=== PATIENT | female | born 1960 | race American Indian/Alaskan Native ===

== ENCOUNTER 2017-11-23 16:39 | Emergency (ER) | payer MEDICARE ==
[2017-11-23 18:12] LABS: Basophils % (Auto) 0.3 % (0.0-1.8); Eosinophils % (Auto) 0.1 % (0.0-4.3); Hematocrit 42.7 % (30.3-42.9); Hemoglobin 13.8 gm/dl (10.1-14.3); Lymphocytes % (Auto) 7.5 % (13.4-35.0); Mean Corpuscular HGB Conc 32 % (30-34); Mean Corpuscular Hemoglobin 30 pg (28-32); Mean Corpuscular Volume 92 fl (79-97); Monocytes # (Auto) 0.7 K/mm3 (0.0-0.8); Monocytes % (Auto) 5.3 % (0.0-7.3); Platelet Count 209 K/mm3 (140-440); Red Blood Count 4.65 M/mm3 (3.65-5.03); Red Cell Distribution Width 14.7 % (13.2-15.2)
[2017-11-23 18:27] LABS: Alanine Aminotransferase 18 units/L (7-56); Albumin 4.3 g/dL (3.9-5); BUN/Creatinine Ratio 19; Blood Urea Nitrogen 13 mg/dL (7-17); Hemolysis Index 1; Lipase 222 units/L (13-60)
[2017-11-23 22:27] LABS: Bilirubin,Urine NEG (Negative); Blood,Urine SM (Negative); Color,Urine Yellow (Yellow); Mucus,Urine FEW /HPF; Protein,Urine <15 mg/dL mg/dL (Negative); Urobilinogen,Urine < 2.0 mg/dL (<2.0)
[2017-11-23] MEDS ORDERED: MORPHINE IV ONE (23:09)
[2017-11-23] MEDS ORDERED: NACL 0.9% 1000 ML 1,000 ML IV ONE (23:09)
[2017-11-23] MEDS ORDERED: PEPCID IV ONE (23:10)
[2017-11-23] MEDS ORDERED: ZOFRAN IV ONE (23:10)
[2017-11-24] MEDS ORDERED: NACL ONE (00:49)
--- NOTE | 2017-11-24 00:59 | Emergency Department Report ---
ED Abdominal Pain HPI - General Chief Complaint: Abdominal Pain Stated Complaint: HEADACE/VOMITING Time Seen by Provider: 11/23/17 22:50 Source: patient Mode of arrival: Ambulatory Limitations: No Limitations - History of Present Illness Initial Comments: 57-year-old female the past medical history of lupus, diverticulitis, benign brain tumor resection, seizures, stomach bypass surgery, intestinal resection surgery presents to the hospital complaints of abdominal pain and headache. Last night patient had mild symptoms but they worsened today. This afternoon patient developed stabbing pain around the umbilicus, frontal headache throbbing headache, nausea, vomiting, and diarrhea. Occasional pink vomitus reported. She denies melena, hematochezia, or fever. She is not currently on steroids but completed a course for acute lupus flare 2 weeks ago. Pain currently moderate in intensity. Abdominal pain worse on palpation Severity scale (0 -10): 7 - Related Data Previous Rx's Medication Instructions Recorded Last Taken Type Dicyclomine [Bentyl] 20 mg PO QID #20 tablet 11/24/17 Unknown Rx Omeprazole Magnesium [PriLOSEC Otc] 20 mg PO QDAY #20 tablet. 11/24/17 Unknown Rx Ondansetron [Zofran Odt] 4 mg PO Q8HR PRN #20 tab.rapdis 11/24/17 Unknown Rx Sucralfate [Carafate] 1 gm PO Q6HR #28 udc 11/24/17 Unknown Rx Allergies Allergy/AdvReac Type Severity Reaction Status Date / Time ampicillin AdvReac Anaphylaxis Verified 06/19/17 17:46 ED Review of Systems ROS: Stated complaint: HEADACE/VOMITING Other details as noted in HPI Comment: All other systems reviewed and negative ED Past Medical Hx - Past Medical History Additional medical history: Lupus,diverticulitis - Surgical History Additional Surgical History: Brain tumor removed, Stomach bypass, Neck surgery, 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 11/24/17 Unknown Rx Ondansetron [Zofran Odt] 4 mg PO Q8HR PRN #20 tab.rapdis 11/24/17 Unknown Rx Sucralfate [Carafate] 1 gm PO Q6HR #28 udc 11/24/17 Unknown Rx ED Physical Exam - General Limitations: No Limitations - Other Other exam information: General: No limitations, patient is alert in no acute distress Head exam: Atraumatic, normocephalic Eyes exam: Normal appearance, nonicteric sclera ENT: Moist mucous membrane, normal oropharynx Neck exam: Normal inspection, full range of motion, no meningismus nontender Respiratory exam: Clear to auscultation bilateral, no wheezes, rales, crackles Cardiovascular: Normal rate and rhythm, normal heart sounds Abdomen: Soft, nondistended, tenderness greatest at the epigastric area, with normal bowel sounds, no rebound, or guarding Extremity: Full range of motion normal inspection no deformity Back: Normal Inspection, full range of motion, no tenderness Neurologic: Alert, oriented x3, cranial nerves intact, no motor or sensory deficit Psychiatric: normal affect, normal mood Skin: Warm, dry, intact ED Course Vital Signs 11/23/17 11/23/17 11/23/17 17:54 22:37 23:01 Temperature 98 F 97.8 F Pulse Rate 67 59 L Respiratory 18 18 Rate Blood Pressure 159/98 152/86 Blood Pressure 141/78 [Right] O2 Sat by Pulse 100 100 100 Oximetry 11/23/17 11/24/17 11/24/17 23:35 00:00 01:15 Temperature Pulse Rate Respiratory Rate Blood Pressure 142/84 130/72 122/70 Blood Pressure [Right] O2 Sat by Pulse 100 99 100 Oximetry - Reevaluation(s) Reevaluation #1: 11/24/17 01:46 pain improved after Morphine, zofran. Pt receiving NS 1 liter ED Medical Decision Making - Lab Data Result diagrams: 11/23/17 18:00 11/23/17 18:00 Lab Results 11/23/17 11/23/17 11/23/17 Range/Units 18:00 18:00 22:01 WBC 13.2 H (4.5-11.0) K/mm3 RBC 4.65 (3.65-5.03) M/mm3 Hgb 13.8 (10.1-14.3) gm/dl Hct 42.7 (30.3-42.9) % MCV 92 (79-97) fl MCH 30 (28-32) pg MCHC 32 (30-34) % RDW 14.7 (13.2-15.2) % Plt Count 209 (140-440) K/mm3 Lymph % (Auto) 7.5 L (13.4-35.0) % Wilson % (Auto) 5.3 (0.0-7.3) % Eos % (Auto) 0.1 (0.0-4.3) % Baso % (Auto) 0.3 (0.0-1.8) % Lymph # 1.0 L (1.2-5.4) K/mm3 Wilson # 0.7 (0.0-0.8) K/mm3 Eos # 0.0 (0.0-0.4) K/mm3 Baso # 0.0 (0.0-0.1) K/mm3 Seg Neutrophils % 86.8 H (40.0-70.0) % Seg Neutrophils # 11.4 H (1.8-7.7) K/mm3 Sodium 139 (137-145) mmol/L Potassium 4.8 (3.6-5.0) mmol/L Chloride 98.2 (98-107) mmol/L Carbon Dioxide 30 (22-30) mmol/L Anion Gap 16 mmol/L BUN 13 (7-17) mg/dL Creatinine 0.7 (0.7-1.2) mg/dL Estimated GFR > 60 ml/min BUN/Creatinine Ratio 19 % Glucose 103 H (65-100) mg/dL Calcium 9.0 (8.4-10.2) mg/dL Total Bilirubin 0.30 (0.1-1.2) mg/dL AST 44 H (5-40) units/L ALT 18 (7-56) units/L Alkaline Phosphatase 70 (35-129) units/L Total Protein 7.9 (6.3-8.2) g/dL Albumin 4.3 (3.9-5) g/dL Albumin/Globulin Ratio 1.2 % Lipase 222 H (13-60) units/L Urine Color Yellow (Yellow) Urine Turbidity Clear (Clear) Urine pH 5.0 (5.0-7.0) Ur Specific [place] 1.013 (1.003-1.030) Urine Protein <15 mg/dl (Negative) mg/dL Urine Glucose (UA) Neg (Negative) mg/dL Urine Ketones Tr (Negative) mg/dL Urine Blood Sm (Negative) Urine Nitrite Neg (Negative) Urine Bilirubin Neg (Negative) Urine Urobilinogen < 2.0 (<2.0) mg/dL Ur Leukocyte Esterase Tr (Negative) Urine WBC (Auto) 1.0 (0.0-6.0) /HPF Urine RBC (Auto) 4.0 (0.0-6.0) /HPF U Epithel Cells (Auto) 1.0 (0-13.0) /HPF Urine Mucus Few /HPF - Radiology Data Radiology results: report reviewed read by radiologist ct abd/pelvis IV contrast: IMPRESSION: No focal inflammatory changes of the abdomen and pelvis. Prior gastric bypass. Large and small bowel loops normal in caliber. The appendix is normal in caliber. No obstructive uropathy. ct head: IMPRESSION: No grossly acute intracranial abnormality. Remote surgical changes of right parietal craniotomy and suboccipital craniectomy. - Medical Decision Making Nausea vomiting and diarrhea likely secondary to acute gastroenteritis. CAT scan at that show any acute abnormality. Patient also had associated headache like he secondary to the same. CT head does not show any acute findings. Patient is nontoxic. Symptoms are better with ED treatment with symptoms control. She'll be discharged home with symptomatic treatment and PMD follow-up - Differential Diagnosis diverticulitis, pancreatitis, gastritis, brain tumor, UTI Critical Care Time: No Critical care attestation.: If time is entered above; I have spent that time in minutes in the direct care of this critically ill patient, excluding procedure time. ED Disposition Clinical Impression: Gastroenteritis, Headache, Lupus Disposition: DC-01 TO HOME OR SELFCARE Is pt being admited?: No Does the pt Need Aspirin: No Condition: Stable Instructions: Gastroenteritis (ED), Acute Headache (ED) Additional Instructions: Taken medication as prescribed and follow up with your doctor. Return if symptoms worsen. Prescriptions: Dicyclomine [Bentyl] 20 mg PO QID #20 tablet Omeprazole Magnesium [PriLOSEC Otc] 20 mg PO QDAY #20 tablet. Ondansetron [Zofran Odt] 4 mg PO Q8HR PRN #20 tab.rapdis PRN Reason: Nausea And Vomiting Sucralfate [Carafate] 1 gm PO Q6HR #28 udc Referrals: your, doctor [Other] - 3-5 Days Time of Disposition: 01:48 (d/c after ivf done)
[2017-11-24 01:32] VITALS: BP 122/70
--- NOTE | 2017-11-24 01:32 | Cat Scan Report ---
FINAL REPORT EXAM: CT HEAD/BRAIN WO CON HISTORY: ferrara, hx of benign tumor resection COMPARISON: None available. TECHNIQUE: Axial images obtained skull base through vertex. FINDINGS: No acute intracranial hemorrhage, midline shift or pathologic extra axial fluid collection. Ventricles and cisterns are normal in size and configuration for the patient's age. Arzola-white differentiation preserved. Prior right parietal craniotomy. There is a lucent lesion with ground-glass matrix involving the right parietal calvarium measuring 1.4 x 0.5 centimeters in axial dimension. 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 No suspicious calvarial lesion. Prior suboccipital craniectomy. Small retention cyst or polyp right maxillary sinus. Mastoid air cells are clear. Ocular globes are grossly unremarkable. IMPRESSION: No grossly acute intracranial abnormality. Remote surgical changes of right parietal craniotomy and suboccipital craniectomy.
--- NOTE | 2017-11-24 01:39 | Cat Scan Report ---
FINAL REPORT EXAM: CT ABDOMEN PELVIS W CON HISTORY: abd pain n,v,d COMPARISON: None available. TECHNIQUE: Contiguous axial images were obtained. Additional sagittal and coronal reformatted images were obtained. Administration of IV contrast given per institution protocol. Images submitted for interpretation. FINDINGS: Mild linear atelectasis at the left lung base. No calcified gallstones or biliary dilatation. Mild fatty infiltration of the liver. Portal vein is mildly prominent diameter but is patent measuring 10 millimeters in diameter. Spleen and pancreas unremarkable. No adrenal mass. No solid renal lesion or hydronephrosis. Aorta and IVC normal in caliber. Urinary bladder and uterus are grossly unremarkable. Ovaries are not well visualized. Multiple pelvic phleboliths. These appear to be separate from the distal ureters. No dilatation of the ureters to suggest presence of ureteral calculus. No free fluid or lymphadenopathy in the pelvic cavity. Prior gastric bypass. Bowel loops normal in caliber. No focal inflammatory changes the bowel. The appendix is best seen on the coronal images and is normal in caliber measuring 5 millimeters in greatest diameter. Moderate degenerative changes of the lumbar spine. Grade 1 anterolisthesis of L4 on L5 due to facet changes. Bony pelvis is grossly intact. IMPRESSION: No focal inflammatory changes of the abdomen and pelvis. Prior gastric bypass. Large and small bowel loops normal in caliber. The appendix is normal in caliber. No obstructive uropathy.
== END 2017-11-24 03:01 | disposition home or self-care (01) ==
LOC: ED 16:39
DX: K52.9 Noninfective gastroenteritis and colitis, unspecified (principal); L93.0 Discoid lupus erythematosus; R51 Headache; Z88.1 Allergy status to other antibiotic agents
CPT/HCPCS: 36415; 70450; 74177; 80053; 81001; 83690; 85025; 96361; 96374; 96375; 99284; J2270; J2405; J7030; Q9967

== ENCOUNTER 2018-09-06 02:33 | Emergency (ER) | payer MEDICARE, OTHER ==
--- NOTE | 2018-09-06 04:30 | Emergency Department Report ---
ED Laceration HPI - HPI Chief Complaint: Wound/Laceration Stated Complaint: FINGER CUT Time Seen by Provider: 09/06/18 03:34 Occurred When: Today Location: Upper Extremity (left middle finger) Tetanus Status: Up to Date Laceration Symptoms: Yes Pain ED Review of Systems ROS: Stated complaint: FINGER CUT Other details as noted in HPI Comment: All other systems reviewed and negative Skin: other ED Past Medical Hx - Past Medical History Previous Medical History?: Yes Additional medical history: Lupus,diverticulitis - Surgical History Past Surgical History?: Yes Additional Surgical History: Brain tumor removed, Stomach bypass, Neck surgery, intestinal resection status post gastric bypass complication - Social History Smoking Status: Former Smoker Substance Use Type: None - Medications Home Medications: Home Medications Medication Instructions Recorded Confirmed Last Taken Type Dicyclomine [Bentyl] 20 mg PO QID #20 tablet 11/24/17 Unknown Rx Omeprazole Magnesium [PriLOSEC Otc] 20 mg PO QDAY #20 tablet. 11/24/17 Unknown Rx Ondansetron [Zofran Odt] 4 mg PO Q8HR PRN #20 tab.rapdis 11/24/17 Unknown Rx Sucralfate [Carafate] 1 gm PO Q6HR #28 udc 11/24/17 Unknown Rx Laceration Physical Exam - Exam General: Vital signs noted. No distress. Alert and acting appropriately. Wound Length (cm): 1 Laceration Location: Upper Extremity (left middle finger) Laceration Exam: Yes Normal Distal CMS, No Foreign Body, No Exposed Tendon, Vessel, or Nerve, No Tendon Injury ED Course Vital Signs 09/06/18 02:38 Temperature 97.4 F L Pulse Rate 69 Respiratory 18 Rate Blood Pressure 140/80 O2 Sat by Pulse 96 Oximetry - Laceration /Wound Repair Left Finger Wound Length (cm): 1 Wound's Depth, Shape: superficial Wound Explored: clean Betadine Prep?: Yes Wound Repaired With: Dermabond Sterile Dressing Applied?: Yes Progress: well ED Medical Decision Making - Medical Decision Making Patient has been evaluated by this provider fast track. Patient has a superficial filet laceration was able to repair with Dermabond and Steri-Strips. Critical care attestation.: If time is entered above; I have spent that time in minutes in the direct care of this critically ill patient, excluding procedure time. ED Disposition Clinical Impression: Laceration of finger of left hand Qualifiers: Encounter type: initial encounter Finger: middle finger Damage to nail status: without damage Foreign body presence: without foreign body Qualified Code(s): S61.213A - Laceration without foreign body of left middle finger without damage to nail, initial encounter Disposition: DC-01 TO HOME OR SELFCARE Is pt being admited?: No Does the pt Need Aspirin: No Condition: Stable Instructions: Skin Adhesive Care (ED), Laceration (ED) Additional Instructions: Keep wound clean and dry. Change bandage daily. Referrals: PRIMARY CARE, [Primary Care Provider] - 3-5 Days Forms: Work/School Release Form(ED)
== END 2018-09-06 04:20 | disposition home or self-care (01) ==
LOC: ED 02:33
CPT/HCPCS: 99281

== ENCOUNTER 2019-09-05 03:20 | Emergency (ER) | payer SELFPAY ==
[2019-09-05] MEDS ORDERED: ASPIRIN 325 MG TAB PO ONE (03:42)
--- NOTE | 2019-09-05 04:07 | XRay Report ---
CHEST 1 VIEW 3:59 AM INDICATION / CLINICAL INFORMATION: Left chest pain and left body swelling for one week.. COMPARISON: None available. FINDINGS: SUPPORT DEVICES: None. HEART / MEDIASTINUM: The heart size and pulmonary vasculature are normal. LUNGS / PLEURA: No significant pulmonary or pleural abnormality. No pneumothorax. ADDITIONAL FINDINGS: There are surgical clips overlying both lower hemithoraces. IMPRESSION: No acute findings. Signer Name: Bryant Romero MD Signed: 09/05/2019 4:03 AM Workstation Name: [id number]
[2019-09-05 04:27] LABS: Basophils % (Auto) 0.4 % (0.0-1.8); Eosinophils # (Auto) 0.1 K/mm3 (0.0-0.4); Eosinophils % (Auto) 1.4 % (0.0-4.3); Hematocrit 35.2 % (30.3-42.9); Hemoglobin 11.5 gm/dl (10.1-14.3); Lymphocytes % (Auto) 28.6 % (13.4-35.0); Mean Corpuscular HGB Conc 33 % (30-34); Mean Corpuscular Volume 87 fl (79-97); Monocytes # (Auto) 0.6 K/mm3 (0.0-0.8); Platelet Count 179 K/mm3 (140-440); Red Blood Count 4.05 M/mm3 (3.65-5.03); Red Cell Distribution Width 15.3 % (13.2-15.2)
[2019-09-05 04:45] LABS: BUN/Creatinine Ratio 21; Blood Urea Nitrogen 15 mg/dL (7-17); Calcium 9.1 mg/dL (8.4-10.2); Hemolysis Index 3
[2019-09-05] MEDS ORDERED: dexAMETHasone 20 MG/5 ML VIAL IM ONE (05:05)
[2019-09-05] MEDS ORDERED: KETOROLAC 60 MG/2 ML INJ IM ONE (05:05)
--- NOTE | 2019-09-05 05:26 | Emergency Department Report ---
ED General Adult HPI - General Chief complaint: Chest Pain Stated complaint: CP/L SIDE SWELLING Time Seen by Provider: 09/05/19 04:58 Source: patient, family Mode of arrival: Ambulatory Limitations: No Limitations, Language Barrier - History of Present Illness Initial comments: Patient is a 59-year-old female with past history of lupus who is presenting with left-sided chest and arm pain. Patient states that a week ago she had a large metal door hit her left upper extremity. Since then she's had pain in the left wrist forearm and area near the shoulder. Patient also has pain with movement of the arm radiating into the left chest. She denies shortness of breath nausea vomiting fevers or chills. Patient states she went to [facility] and the checked a rapid did not x-ray her arm. Patient states she was treated for gastritis. Patient states she did have some epigastric discomfort at that time is improved. Patient has a primary care physician was not reached out to the primary care physician for pain control. Patient states that she feels as though some of the pain is now coming from her lupus exacerbation. Severity scale (0 -10): 7 - Related Data Previous Rx's Medication Instructions Recorded Last Taken Type Dicyclomine [Bentyl] 20 mg PO QID #20 tablet 11/24/17 Unknown Rx Omeprazole Magnesium [PriLOSEC Otc] 20 mg PO QDAY #20 tablet. 11/24/17 Unknown Rx Ondansetron [Zofran Odt] 4 mg PO Q8HR PRN #20 tab.rapdis 11/24/17 Unknown Rx Sucralfate [Carafate] 1 gm PO Q6HR #28 udc 11/24/17 Unknown Rx methOCARBAMOL [Robaxin TAB] 500 mg PO Q6H PRN #14 tablet 09/05/19 Unknown Rx predniSONE [Deltasone] 20 mg PO QDAY #5 tab 09/05/19 Unknown Rx Allergies Allergy/AdvReac Type Severity Reaction Status Date / Time ampicillin AdvReac Anaphylaxis Verified 06/19/17 17:46 ED Review of Systems ROS: Stated complaint: CP/L SIDE SWELLING Other details as noted in HPI Comment: All other systems reviewed and negative ED Past Medical Hx - Past Medical History Previous Medical History?: Yes Additional medical history: Lupus,diverticulitis - Surgical History Past Surgical History?: Yes Additional Surgical History: Brain tumor removed, Stomach bypass, Neck surgery, 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 11/24/17 Unknown Rx Ondansetron [Zofran Odt] 4 mg PO Q8HR PRN #20 tab.rapdis 11/24/17 Unknown Rx Sucralfate [Carafate] 1 gm PO Q6HR #28 udc 11/24/17 Unknown Rx methOCARBAMOL [Robaxin TAB] 500 mg PO Q6H PRN #14 tablet 09/05/19 Unknown Rx predniSONE [Deltasone] 20 mg PO QDAY #5 tab 09/05/19 Unknown Rx ED Physical Exam - General Limitations: No Limitations, Language Barrier General appearance: alert, in no apparent distress - Head Head exam: Present: atraumatic, normocephalic - Eye Eye exam: Present: normal appearance. Absent: PERRL, EOMI - ENT ENT exam: Present: mucous membranes moist - Neck Neck exam: Present: normal inspection - Respiratory Respiratory exam: Present: normal lung sounds bilaterally, chest wall tenderness. Absent: respiratory distress, wheezes, rales, rhonchi - Cardiovascular Cardiovascular Exam: Present: regular rate, normal rhythm, normal heart sounds. Absent: systolic murmur, diastolic murmur, rubs, gallop - GI/Abdominal GI/Abdominal exam: Present: soft, normal bowel sounds. Absent: distended, tenderness, guarding, rebound - Extremities Exam Extremities exam: Present: normal inspection - Expanded Upper Extremity Exam Left General: Present: normal inspection Shoulder Exam: Present: normal inspection, tenderness Upper Arm exam: Present: normal inspection, tenderness Elbow exam: Present: normal inspection, full ROM, tenderness Forearm Wrist exam: Present: normal inspection, tenderness, swelling Hand Wrist exam: Present: normal inspection, tenderness - Back Exam Back exam: Present: normal inspection - Neurological Exam Neurological exam: Present: alert, oriented X3 - Psychiatric Psychiatric exam: Present: normal affect, normal mood - Skin Skin exam: Present: warm, dry, intact, normal color. Absent: rash ED Course Vital Signs 09/05/19 09/05/19 04:55 05:28 Temperature 98.4 F Pulse Rate 66 Respiratory 14 16 Rate Blood Pressure 147/73 [Left] O2 Sat by Pulse 97 Oximetry ED Medical Decision Making - Lab Data Result diagrams: 09/05/19 03:44 09/05/19 03:44 Lab Results 09/05/19 09/05/19 Range/Units 03:44 03:44 WBC 6.9 (4.5-11.0) K/mm3 RBC 4.05 (3.65-5.03) M/mm3 Hgb 11.5 (10.1-14.3) gm/dl Hct 35.2 (30.3-42.9) % MCV 87 (79-97) fl MCH 28 (28-32) pg MCHC 33 (30-34) % RDW 15.3 H (13.2-15.2) % Plt Count 179 (140-440) K/mm3 Lymph % (Auto) 28.6 (13.4-35.0) % Lewis % (Auto) 8.0 H (0.0-7.3) % Eos % (Auto) 1.4 (0.0-4.3) % Baso % (Auto) 0.4 (0.0-1.8) % Lymph # 2.0 (1.2-5.4) K/mm3 Lewis # 0.6 (0.0-0.8) K/mm3 Eos # 0.1 (0.0-0.4) K/mm3 Baso # 0.0 (0.0-0.1) K/mm3 Seg Neutrophils % 61.6 (40.0-70.0) % Seg Neutrophils # 4.3 (1.8-7.7) K/mm3 Sodium 139 (137-145) mmol/L Potassium 4.5 (3.6-5.0) mmol/L Chloride 101.6 (98-107) mmol/L Carbon Dioxide 27 (22-30) mmol/L Anion Gap 15 mmol/L BUN 15 (7-17) mg/dL Creatinine 0.7 (0.7-1.2) mg/dL Estimated GFR > 60 ml/min BUN/Creatinine Ratio 21 % Glucose 95 (65-100) mg/dL Calcium 9.1 (8.4-10.2) mg/dL Troponin T < 0.010 (0.00-0.029) ng/mL - EKG Data -: EKG Interpreted by Me EKG shows normal: sinus rhythm, axis, intervals, QRS complexes, ST-T waves Rate: normal - EKG Data Interpretation: normal EKG - Radiology Data X-ray of the chest, humerus and forearm including wrist are within normal limits and showed no acute fracture. - Medical Decision Making Patient is a 59-year-old female complaining of left-sided chest and left upper extremity pain. Patient states there was an injury approximately a week ago her pain is worsening. Patient believes may be an Joon crisis. X-rays showed no fracture. The patient's laboratory studies are within normal limits. Patient was discharged from course steroids Critical care attestation.: If time is entered above; I have spent that time in minutes in the direct care of this critically ill patient, excluding procedure time. ED Disposition Clinical Impression: Myalgia, Atypical chest pain Disposition: DC-01 TO HOME OR SELFCARE Is pt being admited?: No Does the pt Need Aspirin: No Condition: Stable Instructions: Chest Pain (ED), Musculoskeletal Pain (ED) Referrals: PRIMARY CARE, [Referring] - 3-5 Days Time of Disposition: 05:50
--- NOTE | 2019-09-05 05:43 | XRay Report ---
LEFT HUMERUS 2 VIEWS INDICATION / CLINICAL INFORMATION: Blunt trauma 2 weeks ago with left arm pain. COMPARISON: None available. FINDINGS: BONES / JOINT(S): No acute fracture or subluxation. There are mild degenerative changes involving the acromioclavicular joint. SOFT TISSUES: No significant abnormality. ADDITIONAL FINDINGS: None. IMPRESSION: No acute osseous abnormality. Signer Name: Bryant Romero MD Signed: 09/05/2019 5:39 AM Workstation Name: [email or web address]
--- NOTE | 2019-09-05 05:44 | XRay Report ---
LEFT FOREARM 2 VIEWS INDICATION / CLINICAL INFORMATION: Blunt trauma 2 weeks ago with left forearm pain. COMPARISON: None available. FINDINGS: BONES / JOINT(S): No acute fracture or subluxation. No significant arthritis. SOFT TISSUES: No significant abnormality. ADDITIONAL FINDINGS: None. IMPRESSION: No acute abnormality. Signer Name: Bryant Romero MD Signed: 09/05/2019 5:40 AM Workstation Name: [email or web address]
[2019-09-05 06:27] VITALS: BP 146/82
== END 2019-09-05 06:05 | disposition home or self-care (01) ==
LOC: ED 03:20
DX: R07.89 Other chest pain (principal); M25.532 Pain in left wrist; M79.632 Pain in left forearm; Z88.1 Allergy status to other antibiotic agents; Z79.899 Other long term (current) drug therapy
CPT/HCPCS: 36415; 71045; 73060; 73090; 80048; 84484; 85025; 93005; 93010; 96372; 99285; J1100; J1885

== ENCOUNTER 2020-03-22 20:19 | Emergency (ER) | payer SELFPAY ==
[2020-03-23] MEDS ORDERED: diphenhydrAMINE 25 MG CAP PO ONE (00:52)
[2020-03-23] MEDS ORDERED: IBUPROFEN 800 MG TAB PO ONE (00:53)
--- NOTE | 2020-03-23 02:04 | Emergency Department Report ---
[facility] Chief Complaint: Eye Problems Stated Complaint: LEFT EYE SWELLING, HEADACHE Time Seen by Provider: 03/23/20 00:52 Side: Left Severity: moderate Symptoms: Yes Eye Itching, Yes Eye Redness, Yes Mucous Drainage, No Blurred Vision, No Preceding URI, No H/O Allergic Rhinitis, No Contact Lens Use, No Trauma, No Fever, No Headache ED Review of Systems ROS: Stated complaint: LEFT EYE SWELLING, HEADACHE Other details as noted in HPI Constitutional: denies: chills, fever Eyes: eye discharge ENT: denies: ear pain, throat pain Respiratory: denies: cough, shortness of breath, wheezing Cardiovascular: as per HPI Endocrine: no symptoms reported Gastrointestinal: denies: abdominal pain, nausea, diarrhea Genitourinary: as per HPI Musculoskeletal: denies: back pain, joint swelling, arthralgia Skin: denies: rash, lesions Neurological: denies: headache, weakness, paresthesias Psychiatric: denies: anxiety, depression Hematological/Lymphatic: denies: easy bleeding, easy bruising ED Past Medical Hx - Past Medical History Additional medical history: Lupus,diverticulitis - Surgical History Additional Surgical History: Brain tumor removed, Stomach bypass, Neck surgery, 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 11/24/17 Unknown Rx Ondansetron [Zofran Odt] 4 mg PO Q8HR PRN #20 tab.rapdis 11/24/17 Unknown Rx Sucralfate [Carafate] 1 gm PO Q6HR #28 udc 11/24/17 Unknown Rx methOCARBAMOL [Robaxin TAB] 500 mg PO Q6H PRN #14 tablet 09/05/19 Unknown Rx predniSONE [Deltasone] 20 mg PO QDAY #5 tab 09/05/19 Unknown Rx Ketotifen Fumarate [Zaditor] 2 drops OP BID PRN 5 Days #5 ml 03/23/20 Unknown Rx Polymyxin B Sulf/Trimethoprim 1 drop OP Q3H 1 Days #10 ml 03/23/20 Unknown Rx [Polytrim Eye Drops] [facility] Exam - Exam General: Vital signs noted. No distress. Alert and acting appropriately. Eye Exam: Left Injection, Left Mucous Discharge, Left Purulent Discharge, Left Photophobia, Both EOMI, Neither Chemosis, Neither Abnormal Pupil, Neither Eye Foreign Body, Neither Lid Foreign Body, Neither Corneal Edema HEENT: No Nasal Congestion, No Pharyngeal Erythema Remainder of HEENT: Normal Lungs: Yes Clear Lung Sounds, Yes Good Air Exchange, No Wheezes, No Cough, No Nasal Flaring, No Retractions, No Use of Accessory Muscles ED Medical Decision Making - Medical Decision Making this is straight forward conjunctivitis, plan: poltrim, ibuprofen, zaditor follow up with opthalmology in 1-2 Dos , pt verbalized agreement and understanding with same. Critical care attestation.: If time is entered above; I have spent that time in minutes in the direct care of this critically ill patient, excluding procedure time. ED Disposition Clinical Impression: Conjunctivitis Qualifiers: Conjunctivitis type: acute Acute conjunctivitis type: bacterial Laterality: left Qualified Code(s): H10.32 - Unspecified acute conjunctivitis, left eye Disposition: [id number] Is pt being admited?: No Does the pt Need Aspirin: No Condition: Stable Prescriptions: Polymyxin B Sulf/Trimethoprim [Polytrim Eye Drops] 1 drop OP Q3H 1 Days #10 ml Ketotifen Fumarate [Zaditor] 2 drops OP BID PRN 5 Days #5 ml PRN Reason: eye pain Referrals: MILLICENT PEDRAZA MD [Staff Physician] - 3-5 Days Forms: Work/School Release Form(ED)
[2020-03-23 02:30] VITALS: BP 178/89
== END 2020-03-23 02:25 | disposition designated cancer center or children's hospital (05) ==
LOC: ED 20:19
DX: H10.9 Unspecified conjunctivitis (principal); Z98.890 Other specified postprocedural states; Z79.899 Other long term (current) drug therapy; Z88.1 Allergy status to other antibiotic agents
CPT/HCPCS: 99282